=== PATIENT | male | born 1980 | race Caucasian/White ===

== ENCOUNTER 2024-09-19 16:49 | Emergency (ER) | payer OTHER, SELFPAY ==
--- NOTE | 2024-09-19 17:34 | ED.MUSCINJ ---
HPI-Injury
<Dipika Dior MD, Resident - Last Filed: 09/19/24 18:40>
General
Chief Complaint: Musculo-Skeletal Complaint
Source: patient
Exam Limitations: none
Time Seen by Provider: 09/19/24 16:56
Nursing documentation reviewed up to this point in time: agreed with
History of Present Illness-Injury
Is this injury a work related problem?: Yes
Is pt an associate of [facility]/[place]?: No
Initial Injury comments:
Mr. 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
Past History
<Dipika Dior MD, Resident - Last Filed: 09/19/24 18:40>
Past History
ED Past Medical History: Other (Hypercholesterolemia)
ED Past Surgical History: None
Social History
Tobacco: Smoker
Family History
Family History: Early CAD
Musculoskeletal Injury Exam
<Dipika Dior MD, Resident - Last Filed: 09/19/24 18:40>
Musculoskeletal Injury Exam
Right Upper Arm:
Pain with Movement?: Severe
Tender to palpation?: Severe
Soft tissue swelling?: Moderate
Joint effusion?: Moderate
Hematoma-local bleeding into tissue?: Moderate
Crepitus with movement?: No
Joint instability?: No
Malalignment/deformity?: No
Range of motion: Limited
Distal skin color and temperature: normal-warm & good color
Phy Exam
<Dipika Dior MD, Resident - Last Filed: 09/19/24 18:40>
Physical Exam
Physical Exam:
General: In pain, right arm in sling or holds arm flexed 90 degrees
Upper extremities:
Right biceps displaced proximally compared to left biceps
Severe pain to light palpation of right distal humerus
Supination elicits more pain than pronation
Severe pain/unable to extend arm
Hook test positive for right biceps
No tenderness to palpation of the acromioclavicular or glenohumeral joint
Swelling at the medial elbow soft tissue
Injury Course
<Dipika Dior MD, Resident - Last Filed: 09/19/24 18:40>
Orders/Labs/Results
Orders:
Orders
09/19/24 17:32
CR Humerus - Right Min 2 View* Urgent
Comment:
Reason For Exam: distal biceps tendon rupture
09/19/24 18:16
Ketorolac [Toradol] 30 mg IM NOW STA
<Harlan Raygoza MD - Last Filed: 09/19/24 18:22>
Orders/Labs/Results
Orders:
Orders
09/19/24 17:32
CR Humerus - Right Min 2 View* Urgent
Comment:
Reason For Exam: distal biceps tendon rupture
09/19/24 18:16
Ketorolac [Toradol] 30 mg IM NOW STA
<Dipika Dior MD, Resident - Last Filed: 09/19/24 18:40>
MDM/Problems Addressed
Differential Diagnosis Includes:
Right distal biceps tendon rupture
Right biceps strain
Associated:
Avulsion fracture
MDM/Problems Addressed:
[id number] ultrasound appears to have demonstrated loss of biceps muscle at distal attachment, suggesting a distal biceps tendon rupture
Humerus x-ray to assess for avulsion fractures: No fracture
Toradol for pain. Patient denies taking aspirin recently, so less concern for harmful drug interaction
Oxycodone 5 mg every 6 hours prescription sent to pharmacy
Referral to his orthopedic surgeon Dr. Fallon at [facility]
<Dipika Dior MD, Resident - Last Filed: 09/19/24 18:40>
*Pulse Oximetry
Patient hypoxic: no
*Critical Care Note
Total Time (30-74mins, 75-104mins- exclusive of procedures): Not Applicable
ED Attending Note
<Dipika Dior MD, Resident - Last Filed: 09/19/24 18:40>
-
Portions of this chart may have been created with voice recognition software.� Occasional wrong word or��sound alike� substitutions may have occurred due to the inherent limitations of voice recognition software.
<Harlan Raygoza MD - Last Filed: 09/19/24 18:22>
ED Attending Note
Patient seen and examined by attending physician: Yes
I performed a history and physical exam of patient and discussed management with resident, I reviewed resident's note and agree with documented findings and plan of care.: Yes
ED Attending Note:
I have seen and evaluated the patient with a [id number] encounter. I have spoken to the resident and involved in the medical history, the physical exam, medical decision making.
Evaluation and management service: agree unless noted differently below.
Results interpretation: agree unless noted differently below.
Focused HPI: 44-year-old male presents to the ER for evaluation of a right upper arm injury. Patient was lifting someone onto a stretcher when he felt a pop in his right elbow/bicep and had immediate pain and has had swelling and pain since. No
other injuries or complaints.
Physical exam: Patient has significant pain with attempts at extension of the right elbow he is able to flex slightly but again has pain at extremes of flexion�currently held in about 90 degrees of flexion. Bicep is palpable and retracted into the
upper arm. Bicep tendon not palpable in the antecubital fossa. He has a strong radial pulse. Motor and sensory intact distal right upper extremity.
Medical Decision Makin-year-old male presents with a right bicep injury and concern for bicep tendon rupture. X-ray shows no acute fracture on my review. [id number] ultrasound suggestive of rupture. Placed in a sling here, advised
regarding pain control measures. Prescribed oxycodone for breakthrough pain. Follow-up with orthopedist as an outpatient.
Discharge Plan
Departure
Patient Disposition: Home (Routine Discharge)
Date of Disposition: 09/19/24
Time of Disposition: 18:23
Patient with high blood pressure during this ER visit?: No
Condition: Fair
Discharge Problem:
Biceps rupture, distal
Instructions: Biceps Tendon Rupture (DC)
Prescriptions:
New
oxycodone 5 mg tablet
5 mg PO Q6H PRN (Reason: Pain) Qty: 10 0RF
No Action
aspirin 81 MG tablet,delayed release (DR/EC)
2 tab PO PRN PRN (Reason: prophylactic)
lansoprazole [Prevacid] 30 MG capsule,delayed release(DR/EC)
30 mg PO DAILY
zolpidem 5 MG tablet
5 mg PO HSPRN PRN (Reason: sleep)
Unknown Nasal Rush
2 sprays intranasal DAILY
Patient Comments:
each nostril
Referrals:
Ezra Fallon MD [Active, Orthopedics] - Call in 1-3 days for appt
Referral Note: Suspected right distal biceps tendon rupture based on POC ultrasound and exam. Patient heard 2 pops in his right upper arm while lifting a patient.
Donald Lockhart DO [Family Provider, Family Practice]
Activity Restrictions/Additional Instructions:
Dear Mr. Clark, you presented to the ED due to suspected biceps injury after hearing 2 pops while lifting a patient. Based on the ultrasound, we suspect a distal biceps tendon rupture.
Please follow-up with your orthopedic surgeon Dr. Fallon ([phone]) within 1 to 3 days for treatment.
For pain, we sent a prescription of oxycodone 5 mg to be taken up to every 6 hours to your pharmacy. Feel free to take [id number] pain medicine, such as Tylenol Advil, or Motrin, as needed without exceeding the daily limits.
Please return to the ED if you feel your right arm developing numbness, tingling, pulselessness, pain into extending/flexing your elbow, severe pain, or other signs of compartment syndrome/acute limb ischemia.
Interventions
Interventions:
*Risk Screen - Suicide Last Done: 09/19/24 16:52
*General Assessment Last Done: 09/19/24 16:52
ED-Musculoskeletal Assessment Last Done: 09/19/24 17:32
Discharge Date and Time
Print Language: BENINESE
[2024-09-19 18:24] VITALS: BP 162/100
[2024-09-19] MEDS: TORADOL 30 MG IM (18:35)
== END 2024-09-19 18:43 | disposition home or self-care (01) ==
LOC: EMR 16:49
PROVIDERS: EMERGENCY PHYSICIAN Emergency Medicine; FAMILY PHYSICIAN Family Medicine
DX: S46.211A Strain of muscle, fascia and tendon of other parts of biceps, right arm, initial encounter (principal); X50.0XXA Overexertion from strenuous movement or load, initial encounter; F17.200 Nicotine dependence, unspecified, uncomplicated; Y99.0 Civilian activity done for income or pay
CPT/HCPCS: 99284; 96372; 73060